=== PATIENT | female | born 1930 | race Caucasian/White ===

== ENCOUNTER 2016-05-05 19:32 | Emergency (ER) | payer MEDICARE ==
[2016-05-05 20:05] LABS: CHLORIDE,CL 95 mmol/L (98-107); SODIUM,NA 136 mmol/L (136-145)
--- NOTE | 2016-05-05 20:06 | EDM.PDOC ---
ED HPI NEURO - General Chief Complaint: Neuro Symptoms/Deficits Stated Complaint: at [facility] with sudden onset Time Seen by Provider: 05/05/16 19:33 Source of Information: Reports: EMS, Family History Limitations: Reports: Language barrier - History of Present Illness INITIAL COMMENTS - FREE TEXT/NARRATIVE: 86-year-old white female while at [facility] collapsed suddenly with left upper extremity left lower extremely weakness and slurred speech and headache EMS upon arrival states patient was in the [facility] pew slumped over the patient arrived with her niece which is power of ip attorney living will was reviewed she is DNR/wishes to have full medical care other than intubation and CPR Timing/Duration: Reports: Minutes: Location (Neuro Complaint): Reports: upper extremity, left, lower extremity, left Quality (Neuro Complaint): Reports: weakness, other (garbable speech ) ED ROS GENERAL - Review of Systems Review Of Systems: See Below Constitutional: Reports: weakness. Denies: fever, chills, malaise HEENT: Reports: No symptoms Respiratory: Reports: No Symptoms Cardiovascular: Reports: No symptoms Endocrine: Reports: no symptoms GI/Abdominal: Reports: No symptoms Musculoskeletal: Reports: other (Patient had flaccid left-sided upper extremity lower extremity weakness) Neurological: Reports: Headache, Paresthesia, Trouble Speaking, Difficulty Walking, Weakness Psychiatric: Reports: No symptoms Hematologic/Lymphatic: Reports: no symptoms Immunologic: Reports: no symptoms ED EXAM, NEURO - Physical Exam Exam: See Below General Appearance: alert, no apparent distress (right pupil 4mm left 2mm Perrla eomi ), anxious. No: WD/WN Ears: normal external exam, normal canal, hearing grossly normal, normal TMs Nose: normal inspection, normal mucosa, no blood Throat/Mouth: Normal inspection, Normal lips, Normal gums, Normal oropharynx, Other (pt with mild snoring resp ) Head Exam: atraumatic, normocephalic Neck: normal inspection, supple Respiratory/Chest: no respiratory distress, lungs clear, normal breath sounds, no accessory muscle use Cardiovascular: other (left radius 2+ right radius +1 ). No: normal peripheral pulses GI/Abdominal: normal bowel sounds, soft, non tender, no organomegaly, no distention. No: distended, guarding, rigid, rebound, tender Neurological: alert, normal mood/affect, oriented x 3, withdraws to pain, abnormal light touch, other (left ue normal finger to nose right unable to preform neg sensation to left facial ). No: CN II-XII intact, no motor/ sensory deficits, no response to pain Extremities: normal inspection, no pedal edema. No: normal range of motion Psychiatric: tearful. No: normal affect Skin Exam: Warm, Dry, Intact Course - Vital Signs Text/Narrative:: spoke with DR Almaguer no acute bleed old infarct labs normal spoke with family , peter MURILLO wants to give TPA risk VS benefits discussed called cory [address] DR Medina neuro give labetalol IV and TPA 2 rounds 1st bp mild drop 2nd no change was [address] Medina 2026 ok with given TPA could start Nicardipine IN and give tpa and transport pt DNR DNI but wants TPA and all other measures given and tried - Orders/Labs/Meds Orders: Active Orders 24 hr Category Date Time Status Head wo Cont [CT] Stat Exams 05/05/16 19:42 Taken Labs: Laboratory Tests 05/05/16 05/05/16 05/05/16 Range/Units 19:45 19:45 19:45 WBC 5.3 (4.0-10.0) x10^3/uL RBC 4.95 (4.00-5.50) x10^6/uL Hgb 12.6 (12.0-16.0) g/dL Hct 40.2 (33.0-47.0) % MCV 81.2 (78.0-93.0) fL MCH 25.5 L (26.0-32.0) pg MCHC 31.3 L (32.0-36.0) g/dL RDW Coeff of Deidre 15.6 H (10.0-15.0) % Plt Count 164 (130-400) x10^3/uL Neut % (Auto) 58.3 (50.0-80.0) % Lymph % (Auto) 28.9 (25.0-50.0) % [place] % (Auto) 8.6 (2.0-11.0) % Eos % (Auto) 3.4 (0.0-4.0) % Baso % (Auto) 0.8 (0.2-1.2) % PT (10.0-12.8) SEC INR (2.0-3.5) APTT (24.0-36.0) SEC Sodium 136 (136-145) mmol/L Potassium 3.4 L (3.5-5.1) mmol/L Chloride 95 L (98-107) mmol/L Carbon Dioxide 30 (21-32) mmol/L BUN 19 H (7-18) mg/dL Creatinine 1.1 H (0.55-1.02) mg/dL Est Cr Clr Drug Dosing TNP Estimated GFR (MDRD) 47 Glucose 88 (74-106) mg/dL POC Glucose 87 (74-106) mg/dL Calcium 9.2 (8.5-10.1) mg/dL POC Troponin I (0.00-0.08) ng/mL 05/05/16 05/05/16 Range/Units 19:45 19:50 WBC (4.0-10.0) x10^3/uL RBC (4.00-5.50) x10^6/uL Hgb (12.0-16.0) g/dL Hct (33.0-47.0) % MCV (78.0-93.0) fL MCH (26.0-32.0) pg MCHC (32.0-36.0) g/dL RDW Coeff of Deidre (10.0-15.0) % Plt Count (130-400) x10^3/uL Neut % (Auto) (50.0-80.0) % Lymph % (Auto) (25.0-50.0) % [place] % (Auto) (2.0-11.0) % Eos % (Auto) (0.0-4.0) % Baso % (Auto) (0.2-1.2) % PT 12.2 (10.0-12.8) SEC INR 1.1 L (2.0-3.5) APTT 28.9 (24.0-36.0) SEC Sodium (136-145) mmol/L Potassium (3.5-5.1) mmol/L Chloride (98-107) mmol/L Carbon Dioxide (21-32) mmol/L BUN (7-18) mg/dL Creatinine (0.55-1.02) mg/dL Est Cr Clr Drug Dosing Estimated GFR (MDRD) Glucose (74-106) mg/dL POC Glucose (74-106) mg/dL Calcium (8.5-10.1) mg/dL POC Troponin I 0.01 (0.00-0.08) ng/mL Meds: Medications Discontinued Medications Generic Name Dose Route Start Last Admin Trade Name Marie PRN Reason Stop Dose Admin Alteplase, Recombinant Confirm 05/05/16 20:16 Activase Administered 05/05/16 20:17 Dose 100 mg .ROUTE .STK-MED ONE Nicardipine HCl 25 mg/ Sodium 260 mls @ 5 mls/hr 05/05/16 20:45 Chloride IV .CONTINUOUS SHELBY Protocol Labetalol HCl Confirm 05/05/16 20:10 Normodyne Administered 05/05/16 20:11 Dose 20 mg .ROUTE .STK-MED ONE Ondansetron HCl Confirm 05/05/16 20:17 Zofran Administered 05/05/16 20:18 Dose 4 mg .ROUTE .STK-MED ONE Departure - Departure Time of Disposition: 20:40 Disposition: DC/Tfer to Acute Hospital 02 Condition: fair Clinical Impression: Stroke Referrals: Yola Sparrow DO [Primary Care Provider] - Forms: ED Department Discharge - Problem List & Annotations (1) Stroke SNOMED Code(s): 431191407 Code(s): I63.9 - CEREBRAL INFARCTION, UNSPECIFIED Status: Acute Qualifiers: CVA mechanism: embolism - My Orders Last 24 Hours: My Active Orders 05/05/16 19:42 Head wo Cont [CT] Stat - Assessment/Plan Last 24 Hours: My Active Orders 05/05/16 19:42 Head wo Cont [CT] Stat
[2016-05-05] MEDS ORDERED: Labetalol 20 MG/4 ML Syringe ONE (20:10)
[2016-05-05] MEDS ORDERED: Ondansetron 4 MG/2 ML SDV ONE (20:17)
[2016-05-05] MEDS ORDERED: niCARdipine HCl 25 MG in Sodium Chloride 0.9% 250 ML IV SCH (20:45)
== END 2016-05-05 21:39 | disposition short-term general hospital (02) ==
LOC: VM.ED 19:32
DX: I63.9 Cerebral infarction, unspecified (principal)
CPT/HCPCS: 36415; 70450; 80048; 82962; 84484; 85025; 85610; 85730; 93005; 96365; 96374; 96375; 96376; 99285-GF; 99291; 99292; A9270-GY; J2405; J2997; J7050